=== PATIENT | male | born 2000 | race Caucasian/White ===

== ENCOUNTER 2024-05-23 17:15 | Emergency (ER) | payer SELFPAY ==
[~2024-05-23] VITALS: Ht 175.3 cm; Wt 80.0 kg
[2024-05-23 17:55] VITALS: O2SAT 100
[2024-05-23] MEDS: HYDROCODONE/ACETAMINOPHEN 5/325MG TABLET PO ONE (19:08)
[2024-05-23] MEDS ORDERED: IBUP-2029 MT (19:32)
[2024-05-23 19:59] VITALS: BP 128/79; PULSE 70; RESP 18; TEMP 36.72516; O2SAT 100
== END 2024-05-23 20:09 | disposition home or self-care (01) ==
LOC: ER 17:15
DX: S92.252A Displaced fracture of navicular [scaphoid] of left foot, initial encounter for closed fracture (principal); Z98.890 Other specified postprocedural states; W18.39XA Other fall on same level, initial encounter; Y93.89 Activity, other specified; Y92.89 Other specified places as the place of occurrence of the external cause; Y99.8 Other external cause status
CPT/HCPCS: 29125; 73110; 99283